=== PATIENT | male | born 1970 ===

== ENCOUNTER 2018-05-27 00:12 | Emergency (ER) | payer OTHER ==
[2018-05-27] MEDS ORDERED: Sodium Chloride 0.9% 1,000 ML IV ONE (01:26)
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
[2018-05-27] MEDS ORDERED: levETIRAcetam 500 MG in Sodium Chloride 0.9% 100 ML IVPB STA (01:32)
[2018-05-27 01:52] LABS: BASO % 0.5 % (0.0-2.0); EOS # 0.1 K/uL (0.0-0.7); EOS % 0.9 % (0.0-4.0); LYMPH # 0.7 K/uL (1.0-4.3); LYMPH % 7.8 % (20.0-40.0); MEAN CELL VOLUME 83.3 fL (80.0-94.0); MEAN CORPUSCULAR HEMOGLOBIN 27.7 pg (27.0-31.0); MEAN CORPUSCULAR HGB CONC 33.2 g/dL (33.0-37.0); MONO # 0.7 K/uL (0.0-0.8); MONO % 7.8 % (0.0-10.0); NEUT # 7.8 K/uL (1.8-7.0); PLATELET COUNT 211 K/uL (130-400); RBC 5.07 Mil/uL (4.40-5.90); WHITE BLOOD COUNT 9.4 K/uL (4.8-10.8)
[2018-05-27 02:05] LABS: ALB/GLOB RATIO 1.3 (1.0-2.1); ALBUMIN 4.2 g/dL (3.5-5.0); ALT/SGPT 24 U/L (21-72); AST/SGOT 24 U/L (17-59); BLOOD UREA NITROGEN 16 mg/dL (9-20); CALCIUM 9.2 mg/dl (8.6-10.4); GFR NON-AFRICAN AMERICAN > 60
[2018-05-27 02:17] LABS: EOSINOPHIL 1 % (0-4); LYMPHOCYTE 8 % (20-40); MONOCYTE 8 % (0-10); NEUTROPHIL 83 % (50-75); PLATELET ESTIMATE NORMAL (NORMAL); TOTAL CELLS COUNTED 100
[2018-05-27 03:10] VITALS: BP 123/69; PULSE 87; RESP 20; TEMP 97.7
[2018-05-30 16:49] VITALS: O2SAT 95
--- NOTE | 2018-06-01 23:40 | CARD ---
APPROVED REPORT Date of service: 05/27/2018 EKG Measurement Heart [id number] <Conclusion> Normal sinus rhythm Normal ECG
== END 2018-05-27 03:20 | disposition home or self-care (01) ==
LOC: C.ER 00:12
DX: G40.909 Epilepsy, unspecified, not intractable, without status epilepticus (principal)
CPT/HCPCS: 80053; 85025; 93005; 96361; 96365; 99285; J1953; J7030